=== PATIENT | male | born 1955 | race Caucasian/White ===

== ENCOUNTER 2020-12-23 09:38 | Observation (INO) ==
[2020-12-23] MEDS ORDERED: Naloxone 0.4 MG/ML INJ IVP PRN (11:55)
[2020-12-23] MEDS ORDERED: Ondansetron 4 MG/2 ML VIAL IVP PRN (11:55)
[2020-12-23] MEDS ORDERED: EPINEPHrine 1 MG/ML VIAL IM PRN (11:56)
[2020-12-23] MEDS: predniSONE 20 MG TABLET PO SCH (13:24)
[2020-12-24] MEDS: predniSONE 20 MG TABLET PO SCH (07:35)
[2020-12-24 07:57] VITALS: BP 126/88
[2020-12-24 09:33] LABS: Basophils % 0.1 %; Eosinophils # 0.1 K/mcL (0.0-0.6); Eosinophils % 0.6 %; Hematocrit 39.3 % (37.5-50.1); Hemoglobin 13.2 g/dL (12.9-16.9); Immature Granulocytes % 0.6 % (0-4); Lymphocytes # 1.6 K/mcL (0.6-4.6); Lymphocytes % 11.4 %; Mean Corpuscular HGB Conc 33.6 g/dL (31.6-35.5); Mean Corpuscular Hemoglobin 30.5 pg (28.0-33.3); Mean Corpuscular Volume 90.8 fL (83.0-100.0); Mean Platelet Volume 9.7 fL (9.4-12.4); Monocytes # 0.7 K/mcL (0.0-1.3); Monocytes % 4.6 %; Platelet Count 234 K/mcL (140-400); Red Blood Count 4.33 M/mcL (4.19-5.50); Red Cell Distribution Width 13.7 % (11.5-14.5); Segmented Neutrophils % 82.7 %; White Blood Count 14.2 K/mcL (4.3-11.1)
[2020-12-24 09:36] LABS: Neutrophils # 11.7 K/mcL (1.6-8.9)
[2020-12-24 09:56] LABS: Alanine Aminotransferase 12 Units/L (7-52); Albumin 4.2 g/dL (3.5-5.7); Albumin/Globulin Ratio 1.6 (1.1-2.2); Alkaline Phosphatase 81 Units/L (34-104); Aspartate Amino Transferase 13 Units/L (13-39); BUN/Creatinine Ratio 18 (6-26); Bilirubin,Direct 0.1 mg/dL (0.0-0.2); Bilirubin,Indirect 0.2 mg/dL (0.0-1.0); Bilirubin,Total 0.3 mg/dL (0.3-1.0); Blood Urea Nitrogen 15 mg/dL (8-23); Calcium 9.3 mg/dL (8.6-10.3); Carbon Dioxide 23 mEq/L (23-29); Chloride 109 mEq/L (98-107); Globulin 2.6 g/dL (2.4-3.5); Glucose 137 mg/dL (70-105); Magnesium 1.9 mg/dL (1.6-2.6); Osmolality,Calculated 293 (280-300); Potassium 3.5 mEq/L (3.5-5.1); Sodium 140 mEq/L (136-145); Total Protein 6.8 g/dL (6.4-8.9); eGFR For African Americans > 60 (> 60); eGFR For Non-African Americans > 60 (> 60)
[2020-12-24] MEDS ORDERED: Metoprolol XL (24 HR) Succ 25 MG TAB.ER.24H PO SCH (10:00)
== END 2020-12-24 11:15 | disposition home or self-care (01) ==
LOC: 2NENU → SUATTDRO 10:59
PROVIDERS: ADMIT Student in an Organized Health Care Education/Training Program; ATTEND Pharmacist

== ENCOUNTER 2021-05-24 11:17 | Inpatient (IN) ==
[~2021-05-24 11:17] MED LIST: D5% in Lactated Ringers 1,000 ML IVC SCH
[2021-05-24] MEDS ORDERED: cefOXitin 2,000 MG in Water for inj. (sterile) 20 ML IVP ONE (11:53)
[2021-05-24] MEDS ORDERED: D5% in Lactated Ringers 1,000 ML IVC SCH (12:00)
[2021-05-24] MEDS ORDERED: Famotidine 20 MG/2 ML VIAL IVP ONE (12:00)
[2021-05-24] MEDS ORDERED: Acetaminophen IV 1,000 MG/100 ML BAG IVPB ONE (12:00)
[2021-05-24] MEDS ORDERED: Ondansetron 4 MG/2 ML VIAL IVP PRN (12:30)
[2021-05-24] MEDS ORDERED: Ondansetron 4 MG/2 ML VIAL IVP ONE (12:30)
[2021-05-24] MEDS ORDERED: D5% in Lactated Ringers 500 ML IV SOLUTION IVC ONE (12:30)
[2021-05-24] MEDS ORDERED: Promethazine 6.25 MG in Water for inj. (sterile) 20 ML IVPB PRN (12:30)
[2021-05-24] MEDS ORDERED: Albuterol 2.5 MG/3 ML NEBULIZER IH PRN (12:30)
[2021-05-24] MEDS ORDERED: Gabapentin 100 MG CAPSULE PO ONE (12:30)
[2021-05-24] MEDS ORDERED: Nitroglycerin 0.4 MG TAB.SUBL SL PRN (12:30)
[2021-05-24] MEDS ORDERED: *HR* FentaNYL (PF) 100 MCG/2 ML VIAL IVP PRN (12:30)
[2021-05-24] MEDS ORDERED: Lidocaine HCL 4 ML Topical Solution (Laryng-O-Jet Kit Sterile Pak) TP ONE (12:36)
[2021-05-24] MEDS ORDERED: Ondansetron 4 MG/2 ML VIAL ONE (12:37)
[2021-05-24] MEDS ORDERED: Lidocaine -MPF 2% 5 ML VIAL ONE (12:37)
[2021-05-24] MEDS ORDERED: *HR* Rocuronium Bromide 50 MG/5 ML VIAL ONE ×2 (12:37→15:15)
[2021-05-24] MEDS ORDERED: *HR* HYDROmorphone PF 0.5 MG/0.5 ML SYRINGE IVP PRN (12:38)
[2021-05-24] MEDS ORDERED: *HR* Propofol 200 MG/20 ML VIAL IVP ONE (12:40)
[2021-05-24] MEDS ORDERED: *HR* FentaNYL (PF) 100 MCG/2 ML VIAL ONE ×2 (12:42→15:22)
[2021-05-24] MEDS ORDERED: Naloxone 0.4 MG/ML INJ IVP PRN (13:33)
[2021-05-24] MEDS ORDERED: *HR* HYDROMORPHONE 2 MG/ML VIAL ONE (15:34)
[2021-05-24] MEDS ORDERED: Sugammadex Sodium 200 MG/2 ML VIAL IV ONE (16:51)
[2021-05-25] MEDS ORDERED: *HR* OxyCODONE/APAP 5/325 TABLET PO PRN (06:39)
[2021-05-25] MEDS ORDERED: Ondansetron 4 MG/2 ML VIAL IVP PRN (06:39)
[2021-05-25] MEDS ORDERED: Naloxone 0.4 MG/ML INJ IVP PRN (06:39)
[2021-05-25] MEDS: *HR* FentaNYL (PF) 100 MCG/2 ML VIAL IVP PRN ×2 (07:09→20:26)
[2021-05-25] MEDS: 0.9 % Sodium Chloride 1,000 ML IVC SCH ×2 (07:25→17:03)
[2021-05-25] MEDS: Acetaminophen IV 1,000 MG/100 ML BAG IVPB SCH ×4 (07:37→23:04)
[2021-05-25] MEDS: Pantoprazole 40 MG VIAL IVP SCH (07:59)
[2021-05-25] MEDS: Piperacillin/Tazobactam 3.375 GM in 0.9 % Sodium Chloride Mini Bag 100 ML IVPB SCH ×3 (08:00→23:29)
[2021-05-25 08:19] LABS: Basophils % 0.1 %; Hematocrit 39.6 % (37.5-50.1); Hemoglobin 13.7 g/dL (12.9-16.9); Immature Granulocytes % 0.5 % (0-4); Lymphocytes # 0.6 K/mcL (0.6-4.6); Lymphocytes % 4.6 %; Mean Corpuscular HGB Conc 34.6 g/dL (31.6-35.5); Mean Corpuscular Hemoglobin 31.1 pg (28.0-33.3); Neutrophils # 11.9 K/mcL (1.6-8.9); Platelet Count 220 K/mcL (140-400); Red Cell Distribution Width 12.6 % (11.5-14.5); Segmented Neutrophils % 87.8 %; White Blood Count 13.5 K/mcL (4.3-11.1)
[2021-05-25 08:39] LABS: Blood Urea Nitrogen 12 mg/dL (8-23); Calcium 9.3 mg/dL (8.6-10.3); Carbon Dioxide 24 mEq/L (23-29); Chloride 107 mEq/L (98-107); Glucose 138 mg/dL (70-105); Magnesium 1.9 mg/dL (1.6-2.6); Osmolality,Calculated 288 (280-300); Phosphorous 3.5 mg/dL (2.7-4.5); Potassium 4.2 mEq/L (3.5-5.1); Sodium 138 mEq/L (136-145)
[2021-05-25 09:34] LABS: BUN/Creatinine Ratio 15 (6-26); eGFR For African Americans > 60 (> 60); eGFR For Non-African Americans > 60 (> 60)
[2021-05-25 11:58] LABS: Estimated Average Glucose 114 mg/dl; Hemoglobin A1C 5.6 %
[2021-05-25] MEDS: Loratadine 10 MG TABLET PO SCH (16:43)
[2021-05-25] MEDS: *HR* Heparin 5,000 UNIT/ML VIAL SQ SCH ×2 (16:43→17:28)
[2021-05-26] MEDS: 0.9 % Sodium Chloride 1,000 ML IVC SCH ×2 (01:17→10:12)
[2021-05-26] MEDS: *HR* Heparin 5,000 UNIT/ML VIAL SQ SCH ×2 (05:17→17:18)
[2021-05-26] MEDS: Acetaminophen IV 1,000 MG/100 ML BAG IVPB SCH (05:17)
[2021-05-26 05:19] LABS: Basophils % 0.1 %; Hematocrit 34.6 % (37.5-50.1); Immature Granulocytes % 0.4 % (0-4); Lymphocytes # 1.1 K/mcL (0.6-4.6); Lymphocytes % 12.2 %; Mean Corpuscular HGB Conc 33.8 g/dL (31.6-35.5); Mean Corpuscular Hemoglobin 30.8 pg (28.0-33.3); Mean Corpuscular Volume 91.1 fL (83.0-100.0); Mean Platelet Volume 10.1 fL (9.4-12.4); Monocytes # 0.7 K/mcL (0.0-1.3); Monocytes % 7.2 %; Neutrophils # 7.4 K/mcL (1.6-8.9); Platelet Count 200 K/mcL (140-400); Red Cell Distribution Width 12.9 % (11.5-14.5); Segmented Neutrophils % 80.1 %; White Blood Count 9.2 K/mcL (4.3-11.1)
[2021-05-26 05:20] LABS: Hemoglobin 11.7 g/dL (12.9-16.9)
[2021-05-26 05:39] LABS: BUN/Creatinine Ratio 17 (6-26); Blood Urea Nitrogen 14 mg/dL (8-23); Calcium 8.9 mg/dL (8.6-10.3); Carbon Dioxide 25 mEq/L (23-29); Chloride 110 mEq/L (98-107); Glucose 113 mg/dL (70-105); Magnesium 2.1 mg/dL (1.6-2.6); Osmolality,Calculated 289 (280-300); Phosphorous 2.3 mg/dL (2.7-4.5); Potassium 4.2 mEq/L (3.5-5.1); Sodium 139 mEq/L (136-145); eGFR For African Americans > 60 (> 60); eGFR For Non-African Americans > 60 (> 60)
[2021-05-26] MEDS: Loratadine 10 MG TABLET PO SCH (08:32)
[2021-05-26] MEDS: Pantoprazole 40 MG VIAL IVP SCH (08:32)
[2021-05-26] MEDS ORDERED: Acetaminophen 325 MG TABLET PO PRN (08:39)
[2021-05-26] MEDS ORDERED: *HR* HYDROcodone/Acet 5/325 mg TABLET PO PRN (08:40)
[2021-05-27 04:46] LABS: Basophils % 0.3 %; Eosinophils # 0.1 K/mcL (0.0-0.6); Eosinophils % 1.1 %; Hematocrit 37.4 % (37.5-50.1); Hemoglobin 12.6 g/dL (12.9-16.9); Immature Granulocytes % 0.5 % (0-4); Lymphocytes % 32.3 %; Mean Corpuscular HGB Conc 33.7 g/dL (31.6-35.5); Mean Corpuscular Hemoglobin 30.6 pg (28.0-33.3); Mean Corpuscular Volume 90.8 fL (83.0-100.0); Monocytes # 0.7 K/mcL (0.0-1.3); Monocytes % 11.4 %; Neutrophils # 3.4 K/mcL (1.6-8.9); Platelet Count 195 K/mcL (140-400); Red Blood Count 4.12 M/mcL (4.19-5.50); Red Cell Distribution Width 12.7 % (11.5-14.5); Segmented Neutrophils % 54.4 %; White Blood Count 6.3 K/mcL (4.3-11.1)
[2021-05-27 05:04] LABS: BUN/Creatinine Ratio 15 (6-26); Blood Urea Nitrogen 11 mg/dL (8-23); Calcium 9.2 mg/dL (8.6-10.3); Carbon Dioxide 24 mEq/L (23-29); Chloride 107 mEq/L (98-107); Glucose 91 mg/dL (70-105); Osmolality,Calculated 287 (280-300); Potassium 3.8 mEq/L (3.5-5.1); Sodium 139 mEq/L (136-145); eGFR For African Americans > 60 (> 60); eGFR For Non-African Americans > 60 (> 60)
[2021-05-27] MEDS: *HR* Heparin 5,000 UNIT/ML VIAL SQ SCH (06:23)
[2021-05-27 07:00] VITALS: O2SAT 95
[2021-05-27 10:34] VITALS: BP 163/92; PULSE 99; TEMP 97.3
[2021-05-27] MEDS: Loratadine 10 MG TABLET PO SCH (10:56)
[2021-05-27] MEDS ORDERED: FLU Vac QV 21-22 (6Month+)/PF 0.5 ML SYRINGE IM ONE (13:18)
== END 2021-05-27 13:49 | disposition home or self-care (01) | DRG 331 ==
LOC: SAMDAY 11:17 → 3ANU 17:55
PROVIDERS: ADMIT Surgery; ATTEND Surgery